=== PATIENT | female | born 1950 | race Caucasian/White ===

== ENCOUNTER 2023-11-04 12:05 | Outpatient (RCR) | payer MEDICARE, SELFPAY | END 2023-11-04 23:59 | disposition home or self-care (01) | LOC: RPT 12:05 | PROVIDERS: ATTENDING PHYSICIAN Internal Medicine | DX: M47.812 Spondylosis without myelopathy or radiculopathy, cervical region (principal); Z73.6 Limitation of activities due to disability | CPT/HCPCS: 97010; 97110; 97112; 97140; 97161 ==

== ENCOUNTER → 2023-11-12 18:50 | Outpatient (REF) | payer MEDICARE, SELFPAY | LOC: MRI 3T 18:50 | PROVIDERS: ATTENDING PHYSICIAN Nurse Practitioner Family | DX: M54.2 Cervicalgia (principal) | CPT/HCPCS: 72141 ==

== ENCOUNTER → 2023-12-08 11:15 | Outpatient (REF) | payer MEDICARE, SELFPAY | LOC: HWRAD 11:15 | PROVIDERS: ATTENDING PHYSICIAN Nurse Practitioner Family | DX: E04.1 Nontoxic single thyroid nodule (principal) | CPT/HCPCS: 76536 ==

== ENCOUNTER 2024-01-07 11:58 | Outpatient (RCR) | payer MEDICARE, SELFPAY | END 2024-01-07 23:59 | disposition home or self-care (01) | LOC: RPT 11:58 | PROVIDERS: ATTENDING PHYSICIAN Pain Medicine Interventional Pain Medicine; FAMILY PHYSICIAN Internal Medicine | DX: M54.17 Radiculopathy, lumbosacral region (principal); Z73.6 Limitation of activities due to disability | CPT/HCPCS: 97010; 97110; 97140; 97162; 97530 ==

== ENCOUNTER 2024-02-06 11:09 | Outpatient (RCR) | payer MEDICARE, SELFPAY | END 2024-02-06 23:59 | disposition home or self-care (01) | LOC: RPT 11:09 | PROVIDERS: ATTENDING PHYSICIAN Internal Medicine; FAMILY PHYSICIAN Nurse Practitioner Family | DX: M47.812 Spondylosis without myelopathy or radiculopathy, cervical region (principal); M54.2 Cervicalgia; Z73.6 Limitation of activities due to disability | CPT/HCPCS: 97110; 97140; 97161; 97530 ==

== ENCOUNTER → 2024-12-28 10:47 | Outpatient (REF) | payer MEDICARE, SELFPAY | LOC: HWRAD 10:47 | PROVIDERS: ATTENDING PHYSICIAN Nurse Practitioner Family; FAMILY PHYSICIAN Internal Medicine; REFERRING PHYSICIAN Physician Assistant | DX: Z78.0 Asymptomatic menopausal state (principal) | CPT/HCPCS: 77080 ==

== ENCOUNTER → 2025-06-03 10:23 | Outpatient (REF) | payer MEDICARE, SELFPAY | LOC: HWRCS 10:23 | PROVIDERS: ATTENDING PHYSICIAN Internal Medicine Cardiovascular Disease; FAMILY PHYSICIAN Internal Medicine | DX: R06.02 Shortness of breath (principal) | CPT/HCPCS: 93306 ==